=== PATIENT | female | born 1940 | race Caucasian/White ===

== ENCOUNTER 2019-11-12 08:16 | Inpatient (IN) ==
--- NOTE | 2019-10-26 10:09 | PAT Medication Instructions ---
Medication Instructions Date of Service October 26, 2019 Home Medications aspirin 81 mg PO HS baclofen 10 mg PO BID diphenhydramine HCl 50 mg PO HS donepezil 10 mg PO QAM duloxetine 60 mg PO QAM metformin 500 mg PO BID lyxjecub-rsa-FO-lycopene-boron [Bladder 2.2] 2 tab PO QAM ropinirole 0.5 mg PO HS ASK your prescriber and surgeon aspirin 81 mg PO HS STOP taking 2 weeks before surgery (or as soon as possible if surgery is within 2 weeks) edqvdcmh-nke-AC-lycopene-boron [Bladder 2.2] 2 tab PO QAM STOP taking 24 hours before surgery ropinirole 0.5 mg PO HS DO NOT take the morning of surgery baclofen 10 mg PO BID metformin 500 mg PO BID Take morning of surgery With a small sip of water, OTHERWISE NOTHING TO EAT OR DRINK AFTER MIDNIGHT: donepezil 10 mg PO QAM duloxetine 60 mg PO QAM Take evening before surgery baclofen 10 mg PO BID diphenhydramine HCl 50 mg PO HS metformin 500 mg PO BID Other Notes If you have any questions please call us at [phone] or [phone] or [phone] or [phone]
--- NOTE | 2019-10-28 11:30 | Anesthesiology Consultation ---
Date of Service October 28, 2019 Assessment & Plan (1) Encounter for pre-operative examination: Per PAT assessment on 10/28/19: Travel screen- Patient lives in [place], traveled to [facility] for grocery shopping (wore mask). No known COVID positive contacts. No history of COVID testing. No current COVID related symptoms. - Check BSG AM DOS - Possible difficult intubation due to anatomy Chart Review Chart Review: Acceptable Risk for Surgery and Patient seen in Pre Admission Testing Teaching & Discussion Pre-Anesthesia Teaching/Discussion Notes: Instructed NPO after midnight before surgery,except medications with 15 cc of water. Medication instructions provided according to the PAT guidelines. History Surgery Operation Date: 11/12/19 07:45 Proposed Procedures p L4-L5 Decompression versus Insitu Fusion with Spinal Cord Monitoring - Bruce Johns DO Height/Weight Height: 5 ft 2.5 in Weight: 84.7 kg Allergies Allergy/AdvReac Type Severity Reaction Status Date / Time Sulfa (Sulfonamide Allergy Intermediate HIVES Unverified 10/22/19 08:34 Antibiotics) blue dye Allergy Unknown Unknown Verified 10/22/19 08:34 red dye Allergy Unknown Unknown Verified 10/22/19 08:34 yellow dye Allergy Unknown Unknown Verified 10/22/19 08:34 Ofdhiyt-Jrr-Uwt Reductase AdvReac Mild "felt Unverified 10/22/19 08:34 Inhibitor tired" Medications Home Medications Medication Instructions Recorded Confirmed Last Taken aspirin 81 mg PO HS 09/08/19 10/22/19 Unknown baclofen 10 mg PO BID 09/08/19 10/22/19 Unknown diphenhydramine HCl 50 mg PO HS 09/08/19 10/22/19 Unknown donepezil 10 mg PO QAM 09/08/19 10/22/19 Unknown duloxetine 60 mg PO QAM 09/08/19 10/22/19 Unknown metformin 500 mg PO BID 09/08/19 10/22/19 Unknown lxagzkpw-awd-IW-lycopene-boron 2 tab PO QAM 09/08/19 10/22/19 Unknown [Bladder 2.2] ropinirole 0.5 mg PO HS 09/08/19 10/22/19 Unknown Past Medical History Medical History (Updated 10/28/19 @ 11:43 by Krystina Triana) Cognitive impairment Deep vein thrombosis 2013, 2018- no definitive etiology/previous anti-coagulation discontinued Degenerative disc disease Diabetes mellitus, type 2 Hx of hyperlipidemia Obesity Peripheral neuropathy Restless leg syndrome Urinary incontinence in female Exercise / Class Metabolic Activity III < 4 Walking/Shop/Light housework Past Family History Family History Sister Family history of diabetes mellitus Past Surgical History Surgical History History of cataract surgery RT/LEFT History of colonoscopy History of tooth extraction Past Anesthesia History No Hx of Anesthesia Complications and No Family Hx of Anesthesia Complications History of PONV No Hx of PONV and No Hx of Motion Sickness Social History Smoking Status: Never smoker Do You Dip or Chew Tobacco: No Hx Alcohol Use: No Hx Substance Use: No substance use type: does not use Review of Systems Patient denies chest pain, shortness of breath, fever, chills, cough, wheezing, palpitations. Physical Exam Vital Signs VITALS BP 120/80 P 77 TEMP 98.5 SP02 96%RA RESP 18 PHYSICAL Full neck and c-spine range of motion. Full TMJ range of motion. TMD 2.5 finger breaths (small chin) Mallampati Score 3 (small oral opening) Dentition: missing sides/molars Lungs: clear throughout to auscultation Cardiac: regular rate and rhythm, no murmurs noted Spine: normal Carotid arteries: negative bruit Extremities: no edema Testing Laboratory Results PT 11.0 Seconds (9.0-12.0) 10/28/19 11:45 INR 1.0 (0.9-1.1) 10/28/19 11:45 APTT 26.8 Seconds (21.0-31.0) 10/28/19 11:45 Urine Color Dark Yellow 10/28/19 Unknown Urine Appearance Clear (Clear) 10/28/19 Unknown Urine pH 5.0 (4.5-7.5) 10/28/19 Unknown Ur Specific Epes 1.027 (1.000-1.030) 10/28/19 Unknown Urine Protein Negative (Negative) 10/28/19 Unknown Urine Glucose (UA) Negative (Negative) 10/28/19 Unknown Urine Ketones Trace (Negative) H 10/28/19 Unknown Urine Nitrite Negative (Negative) 10/28/19 Unknown Ur Leukocyte Esterase Negative (Negative) 10/28/19 Unknown Blood Type A Negative 10/28/19 11:45 Antibody Screen NEGATIVE 10/28/19 11:45 10/11/19 WBC 6.74 H/H 14.1/45.9 PLATELETS 291 SODIUM 140 POTASSIUM 4.7 CHLORIDE 100 CO2 27 BUN 16 CREATININE 1.0 GLUCOSE 176 HGBA1C 7.4% Electrocardiogram Date: 10/28/19 NSR at 76bpm. RBBB. unconfirmed report* Chest X-Ray Date: 10/28/19 Findings: + NAD
[2019-10-28 12:27] LABS: Appearance Urine Clear (Clear); Bilirubin Urine Negative (Negative); Blood Urine Negative (Negative); Color Urine Dark Yellow; Glucose Urine UA Negative (Negative); Ketones Urine Trace (Negative); Leukocyte Esterase Urine Negative (Negative); Nitrite Urine Negative (Negative); Protein Urine Negative (Negative); Specific Gravity Urine 1.027 (1.000-1.030); Urobilinogen Urine Negative (Negative)
[2019-10-28 12:30] LABS: Partial Thromboplastin Time 26.8 Seconds (21.0-31.0)
--- NOTE | 2019-10-28 12:31 | XRay Report ---
XR chest Pre-admission PA/Lat CLINICAL HISTORY: Preoperative evaluation. COMPARISON STUDY: No previous studies for comparison. FINDINGS: Lung volumes are normal. Lungs are clear. There is no pneumothorax or pleural effusion. Car diac size is normal. Mediastinal contours are normal. There is no evidence for pulmonary edema. IMPRESSION: No acute cardiopulmonary findings. ACT 112: Negative or not required by law. Electronically signed by: Giovanni Lombardo M.D. 10/28/2019 12:30 PM
--- NOTE | 2019-10-28 16:28 | Electrocardiogram Report ---
Test Reason : Blood Pressure : / mmHG Vent. Rate : 076 BPM Atrial Rate : 076 BPM P-R Int : 150 ms QRS Dur : 120 ms QT Int : 410 ms P-R-T Axes : 071 165 066 degrees QTc Int : 461 ms Normal sinus rhythm Right bundle branch block Abnormal ECG No previous ECGs available Confirmed by Jerald Cullen ([id number]) on 10/28/2019 4:27:49 PM Referred By: Riley Johns Confirmed By:Martin Cullen
[~2019-11-12 08:16] MED LIST: ACETAMINOPHEN 500 MG TAB PO SCH; CEFAZOLIN 2000MG 2,000 MG/15 ML SYR IV SCH; CeleBREX 200 MG CAP PO SCH; GABAPENTIN 300 MG CAP PO SCH; LR 15ML/HR IV SCH
[2019-11-12] MEDS ORDERED: fentaNYL citrate 100 MCG/2 ML VIAL ONE (08:30)
[2019-11-12] MEDS ORDERED: ONDANSETRON INJ 2 MG/ML 2 ML VIAL IV PRN ×2 (09:40→12:46)
[2019-11-12] MEDS ORDERED: ATROPINE SULFATE 0.1 MG/ML 10ML SYR IV PRN (09:40)
[2019-11-12] MEDS ORDERED: HYDROmorphone INJ 0.5 MG/0.5 ML SYR IV PRN ×2 (09:40→12:46)
[2019-11-12] MEDS ORDERED: LABETALOL HCL IV 5 MG/ML 20ML IV PRN (09:40)
--- NOTE | 2019-11-12 09:47 | History & Physical Bridge Note ---
Date of Service November 12, 2019 History & Physical Bridge Note I have examined the patient, reviewed the History & Physical and in the interval since the performance of the History & Physical I have noted the following changes of clinical significance: no changes noted
--- NOTE | 2019-11-12 09:47 | History & Physical Report ---
Date of Service November 12, 2019 Assessment & Plan (1) Neurogenic claudication due to lumbar spinal stenosis: L4-L5 decompression versus in situ fusion Present on Admission?: Yes History of Present Illness Chief Complaint: Back and bilateral leg pain Primary Care Provider: Katherine Sherwood PA-C This is an 79-year-old female that presents with back and bilateral leg pain peer after failing extensive course of nonoperative care she is here for surgical invention. Allergies Allergy/AdvReac Type Severity Reaction Status Date / Time Sulfa (Sulfonamide Allergy Intermediate HIVES Verified 11/12/19 08:42 Antibiotics) blue dye Allergy Unknown Unknown Verified 11/12/19 08:42 red dye Allergy Unknown Unknown Verified 11/12/19 08:42 yellow dye Allergy Unknown Unknown Verified 11/12/19 08:42 Rsdbole-Oak-Riz Reductase AdvReac Mild "felt Verified 11/12/19 08:42 Inhibitor tired" Home Medications Home Medications Medication Instructions Recorded Confirmed Type aspirin 81 mg PO HS 09/08/19 11/12/19 History baclofen 10 mg PO BID 09/08/19 11/12/19 History diphenhydramine HCl 50 mg PO HS 09/08/19 11/12/19 History donepezil 10 mg PO QAM 09/08/19 11/12/19 History duloxetine 60 mg PO QAM 09/08/19 11/12/19 History metformin 500 mg PO BID 09/08/19 11/12/19 History foqjhxtz-agj-IH-lycopene-boron 2 tab PO QAM 09/08/19 11/12/19 History [Bladder 2.2] ropinirole 0.5 mg PO HS 09/08/19 11/12/19 History Past Med/Surg History Family History Sister Family history of diabetes mellitus Social History Preferred Language: Hungarian Communication Ability: Effective Fabrication Welder Required: No Beliefs That Will Affect Care: None Current Living Situation: Spouse Other Information That Helps Us Care for You: No Feels Safe at Home: Yes Safety Concerns: Feels Safe At This Time Smoking Status: Never smoker Do You Dip or Chew Tobacco: No ; Second Hand Exposure: Yes ( KID) ; Tobacco Cessation Education Requested by Patient: No Hx Alcohol Use: No Hx Substance Use: No Physical Exam Physical Exam: Patient is alert and oriented neurologically intact Heart is regular rate and rhythm Lungs clear to auscultation Results & Data Vital Signs (Past 12 Hours) Vital Signs Temp Pulse Resp BP Pulse Ox 11/12/19 08:46 36.7 C 84 18 157/97 H 96
[2019-11-12] MEDS ORDERED: BACITRACIN INJ 50,000 UNIT VIAL ONE (09:52)
[2019-11-12] MEDS ORDERED: BUPIVACAINE/EPINEPHRINE 0.25% 1:200,000 30 ML VIAL ONE (09:53)
[2019-11-12] MEDS ORDERED: DEXAMETHASONE SOD INJ 4 MG/ML VIAL ONE (10:38)
[2019-11-12] MEDS ORDERED: NEOSTIGMINE METHYLSULFATE 5 MG/5 ML SYR ONE (10:38)
[2019-11-12] MEDS ORDERED: PROPOFOL IV EMULSION 10 MG/ML 20 ML VIAL IV ONE (10:38)
[2019-11-12] MEDS ORDERED: LIDOCAINE HCL 2% 2 ML VIAL/AMP(20MG/ML) INFIL ONE (10:38)
[2019-11-12] MEDS ORDERED: GLYCOPYRROLATE 0.2 MG/ML VIAL ONE (10:38)
[2019-11-12] MEDS ORDERED: ONDANSETRON INJ 2 MG/ML 2 ML VIAL ONE (10:38)
[2019-11-12] MEDS ORDERED: ROCURONIUM BROMIDE 10 MG/ML 5 ML VIAL ONE (10:38)
[2019-11-12] MEDS ORDERED: FLOSEAL HEMOSTATIC MATRIX 10ML TOP ONE (10:52)
--- NOTE | 2019-11-12 11:38 | Operative Report ---
Post Operative Report Pre & Post Diagnosis Operation Date: 11/12/19 10:45 Pre-Op Diagnosis: Lumbar Spinal Stenosis with Neurogenic Claudication Post-Op Diagnosis: Lumbar Spinal Stenosis with Neurogenic Claudication I identified the patient and participated in the time-out.: Yes Procedure Operation Date: 11/12/19 10:45 Actual Procedures #1 lumbar decompression with bilateral medial facetectomies and foraminotomies L4-L5. #2 posterior spinal fusion L4-5 per #3 placement posterior instrumentation L4-5 per #4 placement locally harvested morselized autograft in the posterior lateral gutters per #5 placement infuse collagen sponge, master graft in the posterior gutters. Surgeon Riley Johns, DO Stationary Engineer None Estimated Blood Loss 50 Findings Consistent with Post-Op Diagnosis Specimens None Indications This is an 79-year-old female presents with above-mentioned diagnosis after failed extensive course of nonoperative care she is here for the surgical procedure. Description of Procedure Patient was met with identified informed consent obtained. Patient was then neelam en to the operative suite underwent an patient placed in a prone position the Farooq table on top of the Kamar frame. All bony prominences well-padded eyes inspected to ensure no external pressure placed upon the. This point the lumbar spine was prepped and draped in normal sterile fashion. Sharp dissection with the assistance of Bovie cautery was performed down to and exposing the lamina and transverse processes of L4 and L5. From caudal cephalad fashion complete laminectomy of L4 was performed including bilateral medial facetectomies and foraminotomies addressing significant lateral recess stenosis. Secondary to the significant facetectomies required for decompression I elected to fuse her with instrumentation. Pedicle screws were then placed in L4 and L5 bilaterally with assistance of fluoroscopy the proper sized mery locked into position. The transverse processes of L4 and L5 bur to subcortical bleeding bone. Infuse collagen sponge mass graft local autograft placed in the posterior gutters. 15 round BRE drain inserted. The incision was then closed with 1 Vicryl the fascia 2-0 Vicryl subcutaneously and 4 Monocryl for final skin closure. Steri-Strip sterile dressings placed. Patient will continue PACU stable condition. I attest to the content of the Intraoperative Record and any orders documented therein. Any exceptions are noted below.
--- NOTE | 2019-11-12 11:40 | Fluoroscopy Report ---
LUMBAR SPINE, INTRAOPERATIVE FLUOROSCOPY HISTORY: L4-5 decompression and fusion. FLUOROSCOPY TIME: 14 seconds. FINDINGS: Intraoperative fluoroscopy was provided for the lumbar spine. 2 fluoroscopic spot images we re obtained. Posterior decompression and fusion at L4-L5 with pedicle screws and rods. The hardware a ppears intact. IMPRESSION: Fluoroscopy provided for a L4-L5 posterior decompression and fusion. ACT 112: Negative or not required by law. Electronically signed by: Kervin Cardoza M.D. 11/12/2019 11:39 AM
--- NOTE | 2019-11-12 12:23 | Anesthesiology Progress Note ---
Date of Service November 12, 2019 Anesthesia Post Procedure Vital Signs Vital Signs: Temp Pulse Pulse Resp BP BP Pulse Ox 11/12/19 12:15 36.4 C L 91 H 15 157/87 H 97 11/12/19 12:05 91 H 15 159/88 H 96 11/12/19 11:55 93 H 17 165/91 H 99 11/12/19 11:46 37.0 C 100 H 16 169/84 H 99 11/12/19 08:46 36.7 C 84 18 157/97 H 96 Pain Intensity Lower Medial Back: Pain Intensity: 0 Transfer of Care Handoff Completed per policy Notes Mental Status: alert / awake / arousable Patient Amnestic to Procedure: Yes Nausea / Vomiting: adequately controlled Pain: adequately controlled Airway Patency, RR, SpO2: stable & adequate BP & HR: stable & adequate Hydration State: stable & adequate Anesthetic Complications: no major complications apparent
[2019-11-12] MEDS ORDERED: PNEUMOCOCCAL ADMINISTRATION CHARGE ONE (12:45)
[2019-11-12] MEDS ORDERED: PNEUMOCOCCAL POLYSACCHARIDES 25 MCG/0.5 ML VIAL/SYR IM ONE (12:45)
[2019-11-12] MEDS ORDERED: OXYCODONE HCL IR 5 MG TAB (IMMEDIATE RELEASE) PO PRN (12:46)
[2019-11-12] MEDS ORDERED: LORazepam 0.5 MG/1 ML VIAL IV PRN (12:46)
[2019-11-12] MEDS ORDERED: TRAMADOL HCL 50 MG TABLET PO PRN (12:46)
[2019-11-12] MEDS ORDERED: HYDROmorphone INJ 1 MG/ML SYRINGE IV PRN (12:46)
[2019-11-12] MEDS ORDERED: bisacodyL 10 MG SUPP PR PRN (12:46)
[2019-11-12] MEDS ORDERED: DO NOT ADMINISTER FLU VACCINE PRN (12:46)
[2019-11-12] MEDS ORDERED: ACETAMINOPHEN 1,000 MG/100 ML VIAL IV PRN (12:46)
[2019-11-12] MEDS ORDERED: ONDANSETRON 4 MG OD TAB PO PRN (12:46)
[2019-11-12] MEDS ORDERED: PROMETHAZINE HCL 12.5 MG in SODIUM CHLORIDE 0.9% 50 ML IV PRN (12:46)
[2019-11-12] MEDS ORDERED: ALUMINUM/MAGNESIUM SUSP 30 ML UDC PO PRN (12:46)
[2019-11-12] MEDS ORDERED: NALOXONE HCL 0.4 MG/1 ML VIAL/CARP IV PRN (12:46)
[2019-11-12] MEDS ORDERED: LORazepam 0.5 MG TAB PO PRN (12:46)
[2019-11-12] MEDS ORDERED: ACETAMINOPHEN 500 MG TAB PO PRN (12:46)
[2019-11-12] MEDS ORDERED: MAGNESIUM HYDROXIDE SUSP 30 ML UDC PO PRN (12:46)
[2019-11-12] MEDS ORDERED: DO NOT ADMINISTER PNEUMOCOCCAL VACCINE PRN (12:46)
[2019-11-12] MEDS ORDERED: SOD PHOSPHATE/SOD BIPHOSPHATE ENEMA 132 ML BTL PR PRN (12:46)
[2019-11-12] MEDS ORDERED: METOCLOPRAMIDE HCL INJ 5 MG/ML 2 ML VIAL IV PRN (12:46)
[2019-11-12] MEDS ORDERED: FAMOTIDINE 20 MG TAB PO PRN (12:46)
[2019-11-12] MEDS ORDERED: PHARMACY GLYCEMIC MGMT CONSULT PRN (13:21)
[2019-11-12] MEDS ORDERED: GLUCAGON FOR INJ 1 MG VIAL IM PRN (13:30)
[2019-11-12] MEDS ORDERED: GLUCOSE 40% GEL 15 GM TUBE PO PRN (13:30)
[2019-11-12] MEDS ORDERED: CARBOHYDRATES FOR HYPOGLYCEMIA PO PRN (13:30)
[2019-11-12] MEDS ORDERED: GLUCOSE 10 TABS/TUBE PO PRN (13:30)
[2019-11-12] MEDS ORDERED: DEXTROSE 50% 50 ML SYRINGE IV PRN (13:30)
[2019-11-12] MEDS: SODIUM CHLORIDE 0.9% 1000ML 1,000 ML IV SCH ×2 (13:41→21:49)
--- NOTE | 2019-11-12 13:42 | Consultation ---
Date of Consultation November 12, 2019 Assessment & Plan (1) Status post lumbar surgery: Post op day# 0 S/P L4-L5 decompression and fusion by Dr Johns Post op pain controlled and pt without complaint -pain management per ortho -wound management per ortho -PT/OT as appropriate -DVT prophylaxis per ortho -incentive spirometry -monitor H&H for acute blood loss anemia; pre-op Hgb: 14 (2) Diabetes mellitus, type 2: A1c: 7.4 on 10/11/2019 -Hold metformin -current BS -Glycemic pharmacist on board, appreciate assistance in glycemic management (3) HTN (hypertension): Not on home meds -Monitor BP (4) CKD (chronic kidney disease), stage III: Baseline Cr: 1.0 Pre-op Cr: 1.0 -Monitor renal functions -Avoid nephrotoxic agents when possible (5) Dementia: -Continue donepezil DVT Prophylaxis -SCDs per ortho Disposition per primary service Follows with Katherine Sherwood PA-C [facility] for routine care Pt was seen and care coordinated with Dr Angel. See addendum Supervising Physician Co-Signing Physician Notes Attending Addendum: care coordinated with FILI Grimes please refer to her notes for full details, I agree with her notes patient seen and examined, records reviewed by myself as well on exam, patient seen sitting up in bed, comfortable, not in distress, pleasant States she feels fine overall Denies pain in her back No shortness of breath, no chest pain, no palpitations, dizziness, nausea no other symptoms VS noted and reviewed oriented x 2 , not in distress, speaks in sentences with no effort nor accessory muscle use normal rate, regular rhythm, no murmurs clear breath sounds bilaterally non distended, soft, nontender Back: Positive heavy dressing in place, no bleeding or discharge noted no bipedal edema, erythema, warmth no neuro deficits No labs for today ASSESSMENT AND PLAN Status post lumbar spine surgery Patient stable overall Monitor blood pressure and hemoglobin Diabetes type 2 BSG's within acceptable range Hold metformin, continue insulin sliding scale Pharmacy glycemic control service on board other diagnoses and plan of care as per FILI Grimes. notes Damir Angel MD History of Present Illness Requesting Physician: Dr Johns Reason for Consultation: Post op medical management Attending Physician: Riley Johns DO History of Present Illness Pt is 79 y/o F with PMH DM II, HTN, HLD, CKD III, h/o colon cancer, dementia, h/o LE DVT in 2013, seen in consultation for postop medical management s/p L4-L5 decompression and fusion today by Dr. Johns. Postop patient reports doing well and pain is controlled. Denies any back pain or lower extremity pain or lower extremity paresthesias. Denies any nausea, vomiting, chest pain, shortness of breath, palpitations, dizziness. Tolerating clear liquids for lunch. Has not urinated yet since procedure, just returned from procedure. Patient reports last BM yesterday. Denies fever/chills, diaphoresis, ATKINSON, dizziness,cough, sore throat, choking, otalgia, rhinorrhea, abdominal pain, paresthesias, extremity weakness, extremity edema, rashes, urinary symptoms. Allergies Allergy/AdvReac Type Severity Reaction Status Date / Time Sulfa (Sulfonamide Allergy Intermediate HIVES Verified 11/12/19 08:42 Antibiotics) blue dye Allergy Unknown Unknown Verified 11/12/19 08:42 red dye Allergy Unknown Unknown Verified 11/12/19 08:42 yellow dye Allergy Unknown Unknown Verified 11/12/19 08:42 Mcftghc-Biu-Erq Reductase AdvReac Mild "felt Verified 11/12/19 08:42 Inhibitor tired" Home Medications Home Medications Medication Instructions Recorded Confirmed Type aspirin 81 mg PO HS 09/08/19 11/12/19 History baclofen 10 mg PO BID 09/08/19 11/12/19 History diphenhydramine HCl 50 mg PO HS 09/08/19 11/12/19 History donepezil 10 mg PO QAM 09/08/19 11/12/19 History duloxetine 60 mg PO QAM 09/08/19 11/12/19 History metformin 500 mg PO BID 09/08/19 11/12/19 History bggtltvw-juw-JS-lycopene-boron 2 tab PO QAM 09/08/19 11/12/19 History [Bladder 2.2] ropinirole 0.5 mg PO HS 09/08/19 11/12/19 History Patient History Medical History (Updated 11/12/19 @ 13:46 by Demetra Francis PA-C) CKD (chronic kidney disease), stage III Cognitive impairment Deep vein thrombosis 2013, 2019- no definitive etiology/previous anti-coagulation discontinued Degenerative disc disease Dementia Diabetes mellitus, type 2 HTN (hypertension) Hx of hyperlipidemia Obesity Peripheral neuropathy Restless leg syndrome Urinary incontinence in female Surgical History (Updated 11/12/19 @ 13:46 by Demetra Francis PA-C) History of cataract surgery RT/LEFT History of colonoscopy History of tooth extraction Family History Sister Family history of diabetes mellitus Social History Preferred Language: Icelandic Communication Ability: Effective Pulling Unit Floorhand Required: No Beliefs That Will Affect Care: None Current Living Situation: Spouse Other Information That Helps Us Care for You: No Feels Safe at Home: Yes Safety Concerns: Feels Safe At This Time Smoking Status: Never smoker Do You Dip or Chew Tobacco: No ; Second Hand Exposure: Yes ( KID) ; Tobacco Cessation Education Requested by Patient: No Hx Alcohol Use: No Hx Substance Use: No Review of Systems Review of Systems: All systems reviewed & are unremarkable except as noted in HPI & below Physical Exam Physical Exam: General: no distress, overweight Head: normocephalic, atraumatic Eyes: PERRL, EOM's intact, conjunctiva non-injected, anicteric ENT: normal inspection external ears, nose, mucous membranes moist Neck: supple, trachea midline Lungs: clear, no respiratory distress, no wheezing/rhonchi/rales CV: RRR, no pretibial edema Abd: normal BS, soft, protuberant, non-tender Back: surgical dressing intact, BRE drain with serosanguineous drainage Ext: no cyanosis, no calf tenderness; pedal pushes and pulls intact bilaterally, distal pulses intact, sensation to light touch intact Neuro: A&O x 3, no focal deficits noted, normal affect Skin: warm, dry Results & Data ([facility]) Vital Signs (Past 12 Hours) Vital Signs Temp Pulse Pulse Resp BP BP Pulse Ox 11/12/19 13:11 36.5 C 84 18 154/88 H 99 11/12/19 12:35 36.6 C 88 18 157/90 H 100 11/12/19 12:15 36.4 C L 91 H 15 157/87 H 97 11/12/19 12:05 91 H 15 159/88 H 96 11/12/19 11:55 93 H 17 165/91 H 99 11/12/19 11:46 37.0 C 100 H 16 169/84 H 99 11/12/19 08:46 36.7 C 84 18 157/97 H 96
[2019-11-12] MEDS ORDERED: NovoLIN-N (NPH) PER UNIT CHARGE SQ ONE (14:00)
--- NOTE | 2019-11-12 14:47 | Pharmacy Report ---
Glycemic Control Consultation - Date of Service November 12, 2019 - Scope Scope: Glycemic Pharmacist consulted for glycemic control and to write orders per [facility] inpatient glycemic control protocol. - Objective Weight: 81.3 kg Accuchecks BSG (last 24hrs): 11/12/19 11/12/19 11/12/19 08:52 11:52 14:22 POC Glucose 189 H 151 H 186 H - Recent Pertinent Medications Outpatient Anti-diabetic Regimen: * metformin 500 mg BID * A1c = ? % Risk Factors for Insulin Resistance: * Steroids: dexamethasone 12 mg IV intraoperatively * Diet: T2DM - Assessment & Plan Assessment & Plan: ASSESSMENT: * Ms Albarado is an 79 y/o F who presents for lumbar surgery today. She received steroids during surgery. Interviewed patient and she said that she did not know her HbA1C. * Due to steroids, will give NPH 30 units (FULL weight-based stress of 2). Will start Novolog weight-based stress of 3 to prevent steroid induced hyperglycemia. Overnight checks added to ensure complete glycemic control. * ADA & AACE recommend a goal blood sugar range 140-180 mg/dl for the majority of critically ill & non-critically ill patients. However, more stringent targets may be selected in individual cases. Will utilize more stringent goal of 110-140mg/dl based on patient age & comorbidities. Additionally, tighter glycemic control is warranted to facilitate wound/infection healing. * Pt is maintained on oral antidiabetic agents as an outpatient * Oral agents are not recommended for inpatient use d/t drug interactions, changing PO intake, and difficulty titrating for acute hyper/hypoglycemia. ADA recommends re-initiating outpatient oral agents 1-2 days prior to discharge if/when appropriate if they were held on admission. * Will hold oral agents for admission and utilize SQ basal bolus insulin regimen which is the recommended regimen for inpatient glycemic control. PLAN FOR INPATIENT GLYCEMIC CONTROL: * Holding outpatient oral diabetes medications * Basal insulin * NPH 30 units SQ x 1 * Bolus insulin * NovoLog per scale ACHS or Q6hrs while NPO * Goal Range: Low 110 mg/dL - High 140 mg/dL * Correction Factor: 20 mg/dL/unit * Nutritional / Prandial insulin per carb ratio of 1 unit per 7 grams CHO consumed * Please note that the plan above was derived based on current level of insulin resistance and hospital stress. These recommendations are appropriate for inpatient admission only. Plan of care upon discharge will need to be reassessed to avoid potential outpatient hypo/hyperglycemia. Thank you.
[2019-11-12] MEDS: INSULIN ASPART 100 UNITS/ML 3 ML PEN SC SCH ×4 (15:04→23:46)
[2019-11-12] MEDS: CEFAZOLIN 2000MG 2,000 MG/15 ML SYR IV SCH (18:04)
[2019-11-12] MEDS: DOCUSATE SODIUM/SENNA 50/8.6MG TAB PO SCH (20:58)
[2019-11-12] MEDS: ROPINIROLE HCL 0.25 MG TABLET PO SCH (20:59)
[2019-11-12] MEDS: ASPIRIN 81 MG ECTAB PO SCH (20:59)
[2019-11-12] MEDS: BACLOFEN 10 MG TAB PO SCH (21:14)
[2019-11-13] MEDS: CEFAZOLIN 2000MG 2,000 MG/15 ML SYR IV SCH (02:40)
[2019-11-13] MEDS: INSULIN ASPART 100 UNITS/ML 3 ML PEN SC SCH ×5 (04:24→21:24)
[2019-11-13] MEDS: POLYETHYLENE (MIRALAX) 17 GM PACK PO SCH ×4 (06:08→23:41)
[2019-11-13 06:09] LABS: Basophils # (auto) 0.01 K/uL (0-0.2); Basophils % (auto) 0.1 %; Eosinophils # (auto) 0.01 K/uL (0-0.5); Eosinophils % (auto) 0.1 %; Hematocrit (blood only) 38.9 % (37-47); Hemoglobin 12.5 g/dL (12.0-16.0); Immature Granulocytes # (auto) 0.04 K/uL (0.00-0.02); Immature Granulocytes % (auto) 0.3 %; Lymphocytes # (auto) 1.42 K/uL (1.2-3.4); Lymphocytes % (auto) 9.2 %; Mean Corpuscular Hemoglobin 29.8 pg (25-34); Mean Corpuscular Hgb Conc 32.1 g/dL (32-36); Mean Corpuscular Volume 92.8 fL (80-100); Mean Platelet Volume 10.3 fL (7.4-10.4); Monocytes # (auto) 1.32 K/uL (0.11-0.59); Monocytes % (auto) 8.5 %; Neutrophils # (auto) 12.71 K/uL (1.4-6.5); Neutrophils % (auto) 81.8 %; Platelet Count 278 K/uL (130-400); RDW Coefficient of Variation 12.8 % (11.5-14.5); RDW Standard Deviation 43.2 fL (36.4-46.3); Red Blood Count 4.19 M/uL (4.2-5.4); White Blood Count 15.51 K/uL (4.8-10.8)
[2019-11-13 06:42] LABS: BUN Creatinine Ratio 19.1 (10-20); Calcium 8.6 mg/dl (8.5-10.1); Creatinine Clr Calc Pharmacy 41.9 ml/min; Est GFR (African American) 56.1; Est GFR (Non-African American) 48.4; Potassium 4.4 mmol/L (3.5-5.1)
[2019-11-13] MEDS: DULOXETINE HCL 60 MG CAP PO SCH (07:28)
[2019-11-13] MEDS: DONEPEZIL HCL 10 MG TAB PO SCH (07:28)
[2019-11-13] MEDS: BACLOFEN 10 MG TAB PO SCH ×2 (07:29→21:17)
[2019-11-13] MEDS ORDERED: [UNRECOGNIZED DRUG - OTHER] PO SCH (09:00)
--- NOTE | 2019-11-13 09:39 | Orthopedic Progress Note ---
Date of Service November 13, 2019 Assessment & Plan (1) Neurogenic claudication due to lumbar spinal stenosis: At this point we will continue physical therapy monitor her BRE output hopefully discharge home the next few days. Present on Admission?: Yes Admission and Anticipated Discharge Date Admission Date: November 12, 2019 Subjective Back pain controlled leg symptoms improved. Physical Exam Physical Exam: Patient is in the chair at the bedside. She is good strength testing. Appears comfortable. Results & Data ([facility]) Vital Signs (Past 12 Hours) Vital Signs Temp Pulse Resp BP Pulse Ox 11/13/19 07:54 36.6 C 85 16 147/87 H 98 11/13/19 02:23 36.8 C 90 20 160/83 H 91 11/12/19 23:45 36.7 C 97 H 20 180/98 H 96
--- NOTE | 2019-11-13 12:30 | Pharmacy Report ---
Pharmacy Glycemic Short Note 2 - Date of Service November 13, 2019 - Glycemic Short BSG Results (Last 24 hours): 11/12/19 11/12/19 11/12/19 14:22 17:17 20:38 Glucose POC Glucose 186 H 228 H 206 H 11/12/19 11/13/19 11/13/19 23:45 04:22 05:35 Glucose 137 H POC Glucose 155 H 170 H 11/13/19 11/13/19 08:08 12:06 Glucose POC Glucose 136 H 124 H OUTPATIENT ANTIDIABETIC REGIMEN: * Metformin * A1c = 7.4% on 10/11/19 ASSESSMENT: * 79yo T2DM female with excellent outpatient control per recent A1c * Despite excellent outpatient control, expect sustained hyperglycemia with high dose IV dexamethasone. Pt given weight based dose of NPH yesterday to counteract hyperglycemia from DXM given intraoperatively. * Holding oral agents for admission and utilize SQ basal bolus insulin regimen which is the recommended regimen for inpatient glycemic control. * NPH will be used for steroid induced hyperglycemia * bolus insulin monotherapy only needed when not on steroids based on A1c and outpatient oral agent monotherapy. PLAN FOR INPATIENT GLYCEMIC CONTROL: * Hold outpatient oral diabetes medications * Basal insulin * NPH 30 units given POD #0 to counteract DXM 12mg IV given intraoperatively * Dexamethasone 4mg IV daily to start tomorrow AM --> will re-initiate NPH to be given at the time DXM is given. * DXM 4mg IV is equivalent to ~ 26 mg of PO prednisone. Will dose NPH at ~ 0.25 units/kg to cover steroid induced hyperglycemia * NPH 20units SQ daily @ 0700 with IV DXM * Bolus insulin * NovoLog per scale ACHS or Q6hrs while NPO * Goal Range: Low 110 mg/dL - High 140 mg/dL * Correction Factor: 20 mg/dL/unit * Nutritional / Prandial insulin per carb ratio of 1 unit per 8 grams CHO consumed - loosen CR from 7 to 8 since no steroids given today PLAN FOR DISCHARGE: * No changes needed at dc based on A1c
--- NOTE | 2019-11-13 17:12 | Hospitalist Progress Note ---
Date of Service November 13, 2019 Assessment & Plan (1) Status post lumbar surgery: S/P L4-L5 decompression and fusion by Dr Johns POD#1 Pain is controlled Activity, wound care, DVT prophylaxis as per primary team Continue bowel regimen Monitor for postop anemia Continue PT OT Incentive spirometry Leukocytosis, likely reactive Monitor CBC (2) Diabetes mellitus, type 2: A1c: 7.4 on 10/11/2019 Hold metformin Glycemic pharmacist on board, appreciate assistance in glycemic management Monitor BGs (3) HTN (hypertension): Not on home meds BP mildly elevated likely due to pain monitor (4) CKD (chronic kidney disease), stage III: Baseline Cr ~1 Monitor renal functions Avoid nephrotoxic agents when possible Renal function at baseline (5) Dementia: Continue donepezil DVT Px As per ortho Disposition As per primary service Admission and Anticipated Discharge Date Admission Date: November 12, 2019 Subjective Patient is seen and examined at bedside Back pain at surgical site is controlled + Flatus, no BM yet Denies chest pain, shortness of breath, dizziness, nausea, abdominal pain Mild leukocytosis noted Offers no other complaints Review of Systems Review of Systems: All systems reviewed & are unremarkable except as noted in HPI & below Physical Exam Physical Exam: Physical Exam: Vitals signs as noted above General Appearance:Moderately built and nourished, no apparent distress Head: normocephalic, Atraumatic Eyes: normal inspection, EOMI Neck: supple, Trachea midline Respiratory/Chest: Normal breath sounds, CTA, No accessory muscle use Cardiovascular: S1, S2, No murmur Abdomen/GI:Soft, Non tender, Bowel sounds present Back: Surgical site in dressing,+ drain Extremities/Musculoskelatal:normal inspection, no edema Neurologic/Psych:AAOX3, grossly no focal neurological deficits Skin: normal color, warm Results & Data Results & Data ([facility]) Vital Signs (Past 12 Hours) Vital Signs Temp Pulse Resp BP BP Pulse Ox 11/13/19 15:55 144/82 H 11/13/19 15:10 36.6 C 81 16 177/83 H 99 11/13/19 12:08 36.4 C L 81 16 146/84 H 92 11/13/19 07:54 36.6 C 85 16 147/87 H 98 Laboratory Results Short CBC 11/13/19 Range/Units 05:35 WBC 15.51 H (4.8-10.8) K/uL Hgb 12.5 (12.0-16.0) g/dL Hct 38.9 (37-47) % Plt Count 278 (130-400) K/uL [facility] 11/13/19 05:35 Sodium 138 Potassium 4.4 Chloride 108 H Carbon Dioxide 25 BUN 21 H Creatinine 1.08 Glucose 137 H Calcium 8.6
[2019-11-13] MEDS: DOCUSATE SODIUM/SENNA 50/8.6MG TAB PO SCH (21:14)
[2019-11-13] MEDS: ROPINIROLE HCL 0.25 MG TABLET PO SCH (21:16)
[2019-11-13] MEDS: ASPIRIN 81 MG ECTAB PO SCH (21:17)
[2019-11-14 05:58] LABS: Hematocrit (blood only) 39.3 % (37-47); Hemoglobin 12.7 g/dL (12.0-16.0); Mean Corpuscular Hemoglobin 29.9 pg (25-34); Mean Corpuscular Hgb Conc 32.3 g/dL (32-36); Mean Corpuscular Volume 92.5 fL (80-100); Mean Platelet Volume 10.3 fL (7.4-10.4); Platelet Count 249 K/uL (130-400); RDW Coefficient of Variation 12.9 % (11.5-14.5); RDW Standard Deviation 43.5 fL (36.4-46.3); Red Blood Count 4.25 M/uL (4.2-5.4); White Blood Count 11.57 K/uL (4.8-10.8)
[2019-11-14] MEDS: POLYETHYLENE (MIRALAX) 17 GM PACK PO SCH ×2 (06:18→12:13)
[2019-11-14 06:27] LABS: BUN Creatinine Ratio 26.1 (10-20); Calcium 8.4 mg/dl (8.5-10.1); Creatinine Clr Calc Pharmacy 56.6 ml/min; Est GFR (African American) 80.7; Est GFR (Non-African American) 69.6; Magnesium 1.9 mg/dl (1.8-2.4); Potassium 4.3 mmol/L (3.5-5.1)
[2019-11-14] MEDS ORDERED: INSULIN HUMAN NPH SC SCH (07:00)
[2019-11-14] MEDS: INSULIN ASPART 100 UNITS/ML 3 ML PEN SC SCH ×2 (08:25→12:13)
[2019-11-14] MEDS: BACLOFEN 10 MG TAB PO SCH (08:26)
[2019-11-14] MEDS: DULOXETINE HCL 60 MG CAP PO SCH (08:26)
[2019-11-14] MEDS: DONEPEZIL HCL 10 MG TAB PO SCH (08:27)
[2019-11-14] MEDS ORDERED: DEXAMETHASONE SOD PHOSPHATE 4 MG in SYRINGE 0 ML IV SCH (09:00)
--- NOTE | 2019-11-14 10:42 | Discharge Summary ---
Date of Service November 14, 2019 Admission HPI Per Admitting Provider This is an 79-year-old female that presents with back and bilateral leg pain peer after failing extensive course of nonoperative care she is here for surgical invention. Principal Diagnosis Lumbar spinal stenosis with neurogenic claudication Discharge Data Allergies Allergy/AdvReac Type Severity Reaction Status Date / Time Sulfa (Sulfonamide Allergy Intermediate HIVES Verified 11/12/19 08:42 Antibiotics) blue dye Allergy Unknown Unknown Verified 11/12/19 08:42 red dye Allergy Unknown Unknown Verified 11/12/19 08:42 yellow dye Allergy Unknown Unknown Verified 11/12/19 08:42 Axyufel-Sxu-Xqu Reductase AdvReac Mild "felt Verified 11/12/19 08:42 Inhibitor tired" Consultations 11/12/19 12:46 Consult Case Management - Discharge Planning Routine Consult Hospitalist Routine Procedures Performed Operation Date: 11/12/19 10:45 Actual Procedures p L4-L5 Decompression Versus Insitu Fusion, application of Infuse, use of bone graft matrix(Not Applicable) - Riley Johns DO Ordered Studies 11/12/19 10:45 FL fluoroscopy <1hr Routine FL lumbar spine 2-3V Routine Hospital Course (1) Neurogenic claudication due to lumbar spinal stenosis: Patient underwent lumbar decompression fusion tolerated this well was taken to the orthopedic floor possibly. Postop day 1 she was up and ambulating pain controlled. Postop day #2 BRE drain decreased appropriately. Pain well controlled. Strength intact. Subsequently discharged home. Discharge orders instructions from the chart for further review. Total Time Total Time Spent Total Time Spent (In Minutes): 20 minutes Discharge Plan Discharge Items Patient Disposition: Home - Self-Care Reason For Visit: LUMBAR SPINAL STENOSIS W/NEUROGENIC CLAUDICATION Discharge Diagnosis: Lumbar spinal stenosis with neurogenic claudication Activity: As commented below Non-emergency contact: Primary Care Provider Call non-emergency contact if: you have any medication questions Follow-up/Referrals: Katherine Sherwood PA-C [Primary Care Provider] - Diet: Regular Addtl Attending Provider Instructions: ACTIVITY RECOMMENDATIONS: SELF CARE INSTRUCTIONS AFTER THORACIC/LUMBAR FUSIONS 1. You may walk to your tolerance. It is good exercise for your legs and back. Expect some back and intermittent leg aches and pains. 2. You may perform "counter-top" level activities (make a sandwich, khalif with a project, etc.). 3. No bending or lifting of more than 10 pounds or back twisting of any nature (roll like a log when turning in bed). 4. You may ride in a car for 20-30 minutes at a time. No driving until after your first visit with your doctor. 5. Frequent changes of position and restricting sitting to 30 minutes at a time will help limit the amount of back spasms and stiffness you may experience. 6. You may discontinue the use of ambulatory aids (cane, crutches, etc.) once your strength and confidence allow. 7. You may institute director the shower and let water strike your incision when you arrive home at least once daily. Do not take a tub bath, sit in a hot tub or go into a swimming pool until after your first recheck in the office. SPECIAL CARE INSTRUCTIONS: VERY IMPORTANT TO READ AND REVIEW A. Your surgical incision has been closed with a cosmetic suture under the skin that will dissolve in about 6 weeks. In 14 days, you can use a pair of clean scissors and cut the suture that is left outside of the skin at th e ends of your incision. 1. The small skin tapes can be removed 7 days after surgery if they have not fallen off by that point. 2. You may keep the wound open to air as much as possible to promote healing after post-op day number 5 unless told otherwise by your doctor. 3. If you think the wound looks like it is becoming infected (redness or worsening drainage) and/or you are experiencing fever, chill or worsening back pain and muscle spasms, contact the office so that we may evaluate you as soon as possible. B. Complications are uncommon, but please contact us if you have any signs or symptoms of: 1. wound infection (fever higher than 102.5 degrees F, redness, separation of wound, drainage, or increasing pain from the incision) 2. blood clots in legs (pain, swelling, redness and warmth in legs) 3. urinary tract infection (fever higher than 102.5 degrees F, burning upon urination or increased frequency of urination) 4. nerve problems (inability to walk on your toes or heels, numbness, loss of bowel or bladder control) 5. any other symptoms that concern you C. Please call the office at if you have any concerns or questions about your operation or recovery. D. No smoking! Smoking drastically decreases the chance of a solid fusion. E. Do not take any anti-inflammatory medications (Indocin, Advil, Motrin, Aspirin, Naprosyn, etc.) as these may inhibit the chance of a solid fusion. Tylenol is okay to take for pain. MANAGING PAIN AFTER SPINAL SURGERY 1. Narcotic medication is intended for short-term use and will be provided for surgical pain. Surgical pain usually lasts for a period of 4-6 weeks. Narcotic medication includes Percocet, Vicodin, Darvocet, Tylenol #3 or Lortab. 2. Longer-term pain is more appropriately treated with non-narcotic medication such as Tylenol ES. 3. Muscle spasm is not appropriately treated with narcotics. Muscle relaxers such as Soma, Flexeril or Skelaxin can be used along with Tylenol ES. 4. Remember that we all live with some "aches and pains". This is not unusual or uncommon after an injury or as we get older. a. Back pain is expected and may include muscle spasms for 4 to 6 weeks after surgery. The pain should gradually improve. If the pain worsens for no apparent reason, please contact the office. b. Intermittent leg pain may also be experienced and should not be concerned about unless it worsens for no apparent reason. If so, please contact the office. 5. We will provide appropriate medication within the normal guidelines of their prescribed use. We will also be very cautious and aware of potential abuse and extended duration of patients' medication needs. a. Pain medications are for your comfort and to assist with sleep and rest so that the tissue can heal. They are not provided in order to return to normal activity and should not be used through the day. To do so or worsening pain at night can result from ongoing tissue damage and development of tolerance to the prescribed medicine. 6. Please allow 2-3 days to process refills. Prescriptions will not be mailed but must be picked up at the office. FOLLOW UP VISIT: Keep your scheduled follow-up appointment. Any questions, please call the office at . Pending Studies at Discharge: No Stand-Alone Forms: [email or web address], Smoking Cessation Medications and DC Order Prescriptions: New oxycodone 5 mg tablet 5 mg PO Q6H PRN (Reason: pain, severe) Qty: 20 RF: 0 tramadol 50 mg tablet 50 mg PO Q6H PRN (Reason: pain, moderate) Qty: 30 RF: 0 Continued metformin 500 mg Tablet 500 mg PO BID RF: 0 diphenhydramine HCl 50 mg Capsule 50 mg PO HS RF: 0 donepezil 10 mg Tablet 10 mg PO QAM RF: 0 aspirin 81 mg Tablet,Delayed Release (Dr/Ec) 81 mg PO HS RF: 0 baclofen 10 mg Tablet 10 mg PO BID RF: 0 ropinirole 0.5 mg Tablet 0.5 mg PO HS RF: 0 duloxetine 60 mg Capsule,Delayed Release(Dr/Ec) 60 mg PO QAM RF: 0 Bladder 2.2 200-5-250 mcg-mg-mcg Tablet 2 tab PO QAM RF: 0 Discharge Orders: Discharge Order (Routine); Ordered 11/14/19 Ordered By: Rilye Johns Admission Data Admit Date/Time: 11/12/19 11:51 Attending Provider: Riley Johns Admit Provider: Riley Johns Primary Care Provider: Katherine Sherwood Other Providers: Donavon Garcia
--- NOTE | 2019-11-14 12:14 | Hospitalist Progress Note ---
Date of Service November 14, 2019 Assessment & Plan (1) Status post lumbar surgery: S/P L4-L5 decompression and fusion by Dr Johns POD#2 Pain is controlled Activity, wound care, DVT prophylaxis as per primary team Continue bowel regimen for constipation Monitor for postop anemia Continue PT OT Incentive spirometry Leukocytosis, likely reactive--improved Monitor CBC Drain planned to be removed today Planned to be discharged by Ortho today (2) Diabetes mellitus, type 2: A1c: 7.4 on 10/11/2019 Hold metformin Glycemic pharmacist on board, appreciate assistance in glycemic management Monitor BGs (3) HTN (hypertension): Not on home meds BP mildly elevated likely due to pain monitor (4) CKD (chronic kidney disease), stage III: Baseline Cr ~1 Monitor renal functions Avoid nephrotoxic agents when possible Renal function at baseline (5) Dementia: Continue donepezil DVT Px As per ortho Disposition As per primary service Admission and Anticipated Discharge Date Admission Date: November 12, 2019 Subjective Patient is seen and examined at bedside Feels better today No new complaints Back pain is controlled Still has constipation Denies chest pain, shortness of breath, dizziness, nausea, abdominal pain/distention/bloating Plan to be discharged home today Review of Systems Review of Systems: All systems reviewed & are unremarkable except as noted in HPI & below Physical Exam Physical Exam: Physical Exam: Vitals signs as noted above General Appearance:Moderately built and nourished, no apparent distress Head: normocephalic, Atraumatic Eyes: normal inspection, EOMI Neck: supple, Trachea midline Respiratory/Chest: Normal breath sounds, CTA, No accessory muscle use Cardiovascular: S1, S2, No murmur Abdomen/GI:Soft, Non tender, Bowel sounds present Back: Surgical site in dressing,+ drain Extremities/Musculoskelatal:normal inspection, no edema Neurologic/Psych:AAOX3, grossly no focal neurological deficits Skin: normal color, warm Results & Data Results & Data ([facility]) Vital Signs (Past 12 Hours) Vital Signs Temp Pulse Pulse Resp BP BP Pulse Ox 11/14/19 11:33 36.8 C 91 H 86 16 144/82 H 142/85 H 93 11/14/19 07:29 36.8 C 86 16 142/85 H 93 Laboratory Results Short CBC 11/14/19 Range/Units 05:30 WBC 11.57 H (4.8-10.8) K/uL Hgb 12.7 (12.0-16.0) g/dL Hct 39.3 (37-47) % Plt Count 249 (130-400) K/uL [facility] 11/14/19 05:30 Sodium 139 Potassium 4.3 Chloride 107 Carbon Dioxide 27 BUN 21 H Creatinine 0.80 Glucose 136 H Calcium 8.4 L
== END 2019-11-14 12:38 | disposition home or self-care (01) | DRG 460 ==
LOC: ASU 08:16 → 3E 11:51